=== PATIENT | female | born 1945 | race Caucasian/White ===

== ENCOUNTER 2020-06-01 16:00 | Inpatient (IN) | payer MEDICARE ==
[~2020-06-01] VITALS: Ht 165.1 cm; Wt 52.6 kg
[2020-06-01] MEDS ORDERED: DONE10TA44 PO (16:26)
[2020-06-01] MEDS ORDERED: TRAM50TA2 PO (16:26)
[2020-06-01] MEDS ORDERED: LIDOCAINE PATCH TP (16:26)
[2020-06-01] MEDS ORDERED: RIVA10TA PO (16:26)
[2020-06-01] MEDS ORDERED: BUSP5TAB3 PO (16:26)
[2020-06-01] MEDS ORDERED: TRET20CR35 TP (16:26)
[2020-06-01] MEDS ORDERED: ESCI5TAB PO (16:26)
[2020-06-01 16:48] LABS: BASOPHILS % (AUTO) 0.6 % (0.0-2.0); EOSINOPHILS % (AUTO) 0.9 % (0.0-7.0); HEMATOCRIT 35.4 % (31.2-41.9); HEMOGLOBIN 11.6 g/dL (10.9-14.3); LYMPHOCYTES # (AUTO) 1.6 K/uL (20.0-40.0); LYMPHOCYTES % (AUTO) 30.6 % (20.5-51.5); MEAN CORPUSCULAR HEMOGLOBIN 31.1 uug (24.7-32.8); MEAN CORPUSCULAR HGB CONC 33 g/dL (32.3-35.6); MEAN CORPUSCULAR VOLUME 95.3 fL (75.5-95.3); MONOCYTES # (AUTO) 0.6 K/uL (2.0-10.0); MONOCYTES % (AUTO) 11.4 % (0.0-11.0); NEUTROPHILS # (AUTO) 2.9 K/uL (1.8-8.9); NEUTROPHILS % (AUTO) 56.5 % (38.5-71.5); PLATELET COUNT (AUTO) 142 K/uL (179-408); RED BLOOD CELL COUNT(AUTO) 3.71 MIL/uL (3.63-4.92); WHITE BLOOD COUNT (AUTO) 5.1 K/uL (3.8-11.8)
[2020-06-01 16:53] LABS: CARBON DIOXIDE 28 mmol/L (21-32); CHLORIDE 106 mmol/L (98-107); CREATININE 0.8 mg/dL (0.6-1.3); GLUCOSE 85 mg/dL (74-106); POTASSIUM 4.2 mmol/L (3.5-5.1); UREA NITROGEN, BLOOD 17 mg/dL (7-18)
[2020-06-01 16:59] LABS: ACETAMINOPHEN < 2.0 ug/mL (10-30); ALANINE AMINOTRANSFERASE 32 U/L (14-59); ALKALINE PHOSPHATASE 91 U/L (50-136); ASPARTATE AMINOTRANSFERASE 17 U/L (15-37); BILIRUBIN,DIRECT 0.1 mg/dL (0.0-0.2); BILIRUBIN,TOTAL 0.3 mg/dL (0.2-1.0); TOTAL PROTEIN, SERUM 6.6 g/dL (6.4-8.2)
--- NOTE | 2020-06-01 17:11 | NUR ---
Patient is here with her mother in law. She is awake and alert and is cooperative. 12 lead EKG done, labs drawn, covid swab done and patient just completed the CT scan. She ate a sandwich and had a juice
--- NOTE | 2020-06-01 17:17 | NUR ---
I called [facility] psych eval, I left a message
[2020-06-01 17:23] LABS: ETHANOL < 3 MG/DL (0-0)
--- NOTE | 2020-06-01 17:47 | NUR ---
patient ambulated to bathroom with steady gait, urine sent to lab
[2020-06-01 18:08] LABS: *BILIRUBIN,URIN NEGATIVE (NEGATIVE); *BLOOD, URINE 2+ (NEGATIVE); *CLARITY,URINE CLOUDY (CLEAR); *COLOR,URINE YELLOW (YELLOW); *KETONES,URINE TRACE (NEGATIVE); *UROBILINOGEN,URINE 0.2 E.U./dl (NORMAL); LEUKOCYTE ESTERASE ,URINE 1+ (NEGATIVE); NITRITE, URINE POSITIVE (NEGATIVE); PH,URINE 5.5 (5.0-8.0); UGLUCOSE NEGATIVE (NEGATIVE)
[2020-06-01 18:17] LABS: *AMPHETAMINE, URINE NEGATIVE (NEGATIVE); *CANNABINOID, URINE NEGATIVE (NEGATIVE); *COCCAINE, URINE NEGATIVE (NEGATIVE); *OPIATE, URINE NEGATIVE (NEGATIVE); *PHENCYCLIDINE SCREEN,URINE NEGATIVE (NEGATIVE)
--- NOTE | 2020-06-01 18:27 | NUR ---
Thais from crisis team here speaking to patient and family
[2020-06-01 18:44] LABS: BACTERIA,URINE FEW /HPF (NONE SEEN); RBC,URINE 20-50 /HPF (0-3)
[2020-06-01] MEDS ORDERED: NITROFURANTOIN/NITROFURAN MAC 100 MG CAPSULE PO SCH (18:45)
[2020-06-01] MEDS: NITROFURANTOIN/NITROFURAN MAC 100 MG CAPSULE PO SCH ×2 (18:47→18:58)
--- NOTE | 2020-06-01 19:01 | NUR ---
Hand off report given to Alexandre PAGE.
--- NOTE | 2020-06-01 19:17 | NUR ---
Janine riprap worker completed 5150 Hold - DTS/GD for patient.
--- NOTE | 2020-06-01 19:48 | NUR ---
Report given to CAMILO Chavez.
--- NOTE | 2020-06-01 20:18 | NUR ---
Pt. admitted to [facility], under care of Dr. Lindo and Dr. Mora. Belongs List completed, transported with all original paperwork.
[2020-06-01] MEDS ORDERED: LORAZEPAM 0.5 MG TABLET PO PRN (20:45)
[2020-06-01] MEDS ORDERED: ACETAMINOPHEN 325 MG TABLET PO PRN (20:45)
[2020-06-01] MEDS ORDERED: MAG HYDROX/AL HYDROX/SIMETH 30 ML LIQUID UDC PO PRN (20:45)
[2020-06-01] MEDS ORDERED: MAGNESIUM HYDROXIDE 30 ML LIQUID UDC PO PRN (20:45)
[2020-06-01 21:01] VITALS: BP 122/60
[2020-06-01] MEDS: TEMAZEPAM 7.5 MG CAPSULE PO PRN (21:11)
--- NOTE | 2020-06-01 22:15 | NUR ---
GPS: Admitted to unit earlier a 75 yr.old female under the care and supervision of Dr. Lindo/ Dr. Carmen. Pt.is on a 72 hour hold for GD. Pt.is AOx3. Anxious,depressed but denies SI/wanting to hurt self. Contracts for safety while in the hosp. Personal belongings completed. Pt's rights handbook given as well as advisement. Unit rules explained. Safe environment provided. Re-assured prn. Will continue to monitor.
[2020-06-01] MEDS ORDERED: TRAMADOL HCL 50 MG TABLET PO PRN (23:00)
[2020-06-02] MEDS: CEphaleXIN 500 MG CAPSULE PO SCH ×3 (06:09→22:01)
[2020-06-02] MEDS ORDERED: LEVOTHYROXINE SODIUM 25 MCG TABLET PO SCH (07:00)
[2020-06-02 07:30] VITALS: BP 102/48
--- NOTE | 2020-06-02 07:30 | NUR ---
Received report from KIARA Sanchez. All questions, comments, and concerns were addressed. Received patient resting quietly in her assigned bed, bed is in low and locked position.
--- NOTE | 2020-06-02 08:37 | NUR ---
Firearms Report: Actuarial Clerk completed and submitted a [employer] firearms report for 5150 grave disability certification. A copy of report has been placed in patient chart.
[2020-06-02] MEDS: RIVAROXABAN 10 MG TABLET PO SCH (08:46)
[2020-06-02] MEDS ORDERED: INFLUENZA VACCINE 2020-2021 0.5 ML DISP.SYRIN IM ONE (09:00)
[2020-06-02] MEDS ORDERED: PNEUMOCOCCAL 23-VAL P-SAC VAC 0.5 ML VIAL IM ONE (09:00)
--- NOTE | 2020-06-02 09:44 | NUR ---
Initial Discharge Plan: Patient currently lives at home [address], [place], [place] [address]; ([phone]) and lives with Victor Hugo ([phone]). Patient would want to return back home upon discharge. This SW contacted patient's Victor Hugo ([phone]) to discuss treatment and discharge plan, however, was unavailable. This SW will work with patient, MD, and treatment team to help coordinate proper discharge.
--- NOTE | 2020-06-02 09:45 | NUR ---
SW Family Contact: This SW contacted patient's Victor Hugo ([phone]) to discuss treatment and discharge plan, however, was unavailable.
--- NOTE | 2020-06-02 10:40 | NUR ---
patient is alert and oriented. she is guarded, withdrawn, and isolative to her assigned room, but is cooperative and redirectable. patient is adherent with medication, no adverse reaction noted. patient denies SI/HI, denies AH/VH. patient states that she does not belong on this unit because she is "not that sick" and is minimizing reason for admission. patient is able to tolerate food and fluids. able to ambulate independently and perform self care and ADL's. patient is encouraged to participate in the unit therapeutic milieu and groups. educated about impulse control.
[2020-06-02] MEDS: DULOXETINE 30 MG CAPSULE.DR PO SCH (13:26)
--- NOTE | 2020-06-02 13:59 | NUR ---
Individual Therapy: home mission worker met with patient for brief counseling and discussed patient's presenting problem depression. Patient appeared withdrawn and depressed. She expressed to this SW that she has been feeling "hopeless" at home and has been in bed majority of the time. Patient expressed that the medications she was taking at home was not helpful. This SW encouraged patient to participate in group and interact with peers.
--- NOTE | 2020-06-02 14:30 | NUR ---
SW Family Contact: This SW contacted patient's Victor Hugo ([phone]) to gather collateral and discuss treatment plan. He reported patient has been depressed and home and needs help. Victor Hugo would want patient back home upon discharge.
[2020-06-02 16:28] VITALS: BP 106/49
--- NOTE | 2020-06-02 18:43 | NUR ---
Influenza and Pneumococcal-23 vaccines administered per order. No adverse reaction noted. Patient provided with VIS and education about vaccines, able to verbalize understanding.
[2020-06-02 20:27] VITALS: BP 127/64
[2020-06-02] MEDS: MIRTAZAPINE 15 MG TABLET PO SCH (21:13)
[2020-06-02] MEDS: NYSTATIN CREAM 30 GM TUBE TOP SCH (21:14)
[2020-06-03] MEDS: LEVOTHYROXINE SODIUM 50 MCG TABLET PO SCH (06:07)
[2020-06-03] MEDS: CEphaleXIN 500 MG CAPSULE PO SCH ×3 (06:07→21:21)
[2020-06-03 07:30] VITALS: BP 154/67
[2020-06-03] MEDS: RIVAROXABAN 10 MG TABLET PO SCH (08:52)
[2020-06-03] MEDS: NYSTATIN CREAM 30 GM TUBE TOP SCH ×2 (08:53→20:30)
[2020-06-03] MEDS: DULOXETINE 30 MG CAPSULE.DR PO SCH (13:58)
--- NOTE | 2020-06-03 15:16 | NUR ---
SW Family Contact: This SW received a phone call from patient's Victor Hugo ([phone]) and he wanted an update on how patient has been doing. This SW expressed that patient continues to be depressed.
--- NOTE | 2020-06-03 15:21 | NUR ---
URIEL Family Contact: This URIEL spoke with patient's Renan ([phone]) and discussed discharge planning. Renan stated that he has made a decision with patient and wants her to go to the [facility]. She stated if this SW can contact her daughter Carmen ([phone]) and discuss the discharge plan. Addendum: 06/03/20 at 1525 by URIEL MISTRY Wrong patient.
--- NOTE | 2020-06-03 15:25 | NUR ---
URIEL Family Contact: This SW contacted patient's daughter Carmen ([phone]) and was unable to leave a voicemail due to mailbox being full. Addendum: 06/03/20 at 1526 by URIEL MISTRY Wrong patient
[2020-06-03 16:00] VITALS: BP 131/94
[2020-06-03 20:28] VITALS: BP 146/77
[2020-06-03] MEDS: MIRTAZAPINE 15 MG TABLET PO SCH (20:30)
[2020-06-04] MEDS: CEphaleXIN 500 MG CAPSULE PO SCH ×3 (06:07→21:16)
[2020-06-04] MEDS: LEVOTHYROXINE SODIUM 50 MCG TABLET PO SCH (06:07)
[2020-06-04 07:30] VITALS: BP 144/63
[2020-06-04] MEDS: RIVAROXABAN 10 MG TABLET PO SCH (08:57)
[2020-06-04] MEDS: NYSTATIN CREAM 30 GM TUBE TOP SCH ×2 (09:13→20:54)
--- NOTE | 2020-06-04 13:08 | NUR ---
Individual Therapy: kennel worker met with patient for brief counseling and discussed patient's presenting problem depression. Patient appeared depressed. Patient continues to state that she feels "hopeless" and unable to state why. Patient minimizes her mental illness and states that "it is scary to be here". SW actively listened and educated patient on her mental illness.
--- NOTE | 2020-06-04 13:08 | NUR ---
SW Family Contact: This SW spoke with patient's Victor Hugo ([phone]) and he wanted to know how pt has been doing. This SW shared patient's treatment plan.
[2020-06-04] MEDS: DULOXETINE 30 MG CAPSULE.DR PO SCH (13:42)
--- NOTE | 2020-06-04 15:43 | NUR ---
SW Family Contact: This SW spoke with patient's daughter Marily ([phone]) who stated that she feels guilty that her mother is at a psychiatric hospital. She stated her mother is constantly contacting and stating that "she doesn't belong here". This SW explained to daughter that patient is depressed and withdrawn and has been minimizing her symptoms. Daughter was understanding and would want to speak to doctor Belgica. This SW notified to contact doctor Belgica. Addendum: 06/04/20 at 1556 by URIEL MISTRY SW Family Contact: This SW spoke with patient's daughter Marily ([phone]) who stated that she feels guilty that her mother is at a psychiatric hospital. She stated her mother is constantly contacting and stating that "she doesn't belong here". This SW explained to daughter that patient is depressed and withdrawn and has been minimizing her symptoms. Daughter was understanding and would want to speak to doctor Belgica. This SW notified doctor Belgica to contact daughter.
[2020-06-04 16:42] VITALS: BP 128/63
[2020-06-04 20:08] VITALS: BP 122/59
[2020-06-04] MEDS: MIRTAZAPINE 15 MG TABLET PO SCH (20:47)
[2020-06-05] MEDS: CEphaleXIN 500 MG CAPSULE PO SCH ×3 (06:04→20:51)
[2020-06-05] MEDS: LEVOTHYROXINE SODIUM 50 MCG TABLET PO SCH (06:04)
--- NOTE | 2020-06-05 06:32 | NUR ---
PATIENT ALERT ORIENTED, COMPLAIN OF BACK PAIN, AND INSOMNIA, MEDICATED ORDERED. PATIENT SLEPT FOR 5.45 HRS, PATIENT STAYED IN HER ROOM MOST OF THE NIGHT. Addendum: 06/05/20 at 0635 by MAXIMINO HAMPTON RN PATIENT ALERT ORIENTED, COMPLAIN OF BACK PAIN, AND INSOMNIA, MEDICATED ORDERED. PATIENT SLEPT FOR 5.45 HRS, PATIENT STAYED IN HER ROOM MOST OF THE NIGHT. CHARTING IN ERROR.
--- NOTE | 2020-06-05 06:35 | NUR ---
PATIENT ALERT NO COMPLAIN OF PAIN, CONT ON ABX WITH NO ADVERSE REACTION NOTED. PATIENT STAYED IN HER ROOM MOST OF THE NIGHT, PATIENT COOPERATIVE WITH CARE AND MEDICATION, CONT TO MONITOR.
[2020-06-05 07:30] VITALS: BP 120/42
[2020-06-05] MEDS: RIVAROXABAN 10 MG TABLET PO SCH (08:41)
[2020-06-05] MEDS: NYSTATIN CREAM 30 GM TUBE TOP SCH ×2 (08:45→20:52)
[2020-06-05] MEDS: ENSURE ENLIVE (VAN) 240 ML LIQUID PO SCH (09:00)
[2020-06-05] MEDS: DULOXETINE 30 MG CAPSULE.DR PO SCH (12:34)
--- NOTE | 2020-06-05 12:46 | NUR ---
Gps/Wrist Closer- Stayed in the dinning room during his lunch ,interacting with her selected peers. , compliant with her routine meds., continue to verbalized feelings and needs, claimed feeling anxious , calmer when talking to staff
[2020-06-05 16:00] VITALS: BP 112/52
[2020-06-05] MEDS: MIRTAZAPINE 15 MG TABLET PO SCH (20:52)
[2020-06-05] MEDS: TEMAZEPAM 7.5 MG CAPSULE PO PRN (21:14)
[2020-06-06] MEDS: CEphaleXIN 500 MG CAPSULE PO SCH ×3 (05:43→21:07)
[2020-06-06] MEDS: LEVOTHYROXINE SODIUM 50 MCG TABLET PO SCH (06:01)
--- NOTE | 2020-06-06 06:49 | NUR ---
PT SLEPT 5.30 H.PT IN NO ACUTE DISTRESS. PT VITAL SIGNS STABLE. PRESCRIBED MEDICATION GIVEN AND PT TOLERATED IT WELL. PT GIVEN RESTORIL PRN AT 2114H PER PT REQUEST. PT COOPERATIVE WITH CARE. SAFETY AND COMFORT PROVIDED. ALL NEEDS ARE MET. WILL ENDORSE TO INCOMING NURSE FOR CONTINUITY OF CARE.
[2020-06-06 07:30] VITALS: BP 109/55
[2020-06-06] MEDS: RIVAROXABAN 10 MG TABLET PO SCH (10:19)
[2020-06-06] MEDS: NYSTATIN CREAM 30 GM TUBE TOP SCH ×2 (10:20→20:29)
[2020-06-06] MEDS: ENSURE ENLIVE (VAN) 240 ML LIQUID PO SCH (10:21)
[2020-06-06] MEDS: DULOXETINE 30 MG CAPSULE.DR PO SCH (13:01)
[2020-06-06 16:00] VITALS: BP 149/67
[2020-06-06 20:05] VITALS: BP 124/51
[2020-06-06] MEDS: MIRTAZAPINE 15 MG TABLET PO SCH (20:24)
[2020-06-07] MEDS: LEVOTHYROXINE SODIUM 50 MCG TABLET PO SCH (06:20)
[2020-06-07] MEDS: CEphaleXIN 500 MG CAPSULE PO SCH ×3 (06:20→22:44)
--- NOTE | 2020-06-07 07:11 | NUR ---
PATIENT ALERT STAYED ON HER ROOM MOST OF THE NIGHT, NO COMPLAIN OF PAIN, NO BEHAVIORAL PROBLEM NOTED, ENCOURAGED TO DRINK WATER SINCE SHE ON ABX FOR UTI, CONT TO MONITOR. PATIENT SLEPT FOR 7 HRS.
[2020-06-07 07:30] VITALS: BP 146/68
[2020-06-07] MEDS: RIVAROXABAN 10 MG TABLET PO SCH (08:59)
[2020-06-07] MEDS: ENSURE ENLIVE (VAN) 240 ML LIQUID PO SCH (09:00)
[2020-06-07] MEDS: NYSTATIN CREAM 30 GM TUBE TOP SCH (09:00)
[2020-06-07] MEDS: DULOXETINE 30 MG CAPSULE.DR PO SCH (12:07)
--- NOTE | 2020-06-07 12:37 | NUR ---
SNF Referral: This SW contacted Janine greco from [facility] ([phone]) for possible placement. This SW sent H & P notes, medication list, and laboratory list.
--- NOTE | 2020-06-07 12:39 | NUR ---
SNF Contact: This SW received a call from Janine greco from [facility] ([phone]) who stated patient is accepted.
--- NOTE | 2020-06-07 12:39 | NUR ---
SW Family Contact: This SW spoke with patient's Victor Hugo ([phone]) and stated patient is accepted at [facility] and he was agreeable with this plan.
--- NOTE | 2020-06-07 13:25 | NUR ---
SW Family Contact: This SW spoke with patient's daughter Dustin ([phone]) and stated pt is accepted at [facility] and she was agreeable with this.
--- NOTE | 2020-06-07 15:44 | NUR ---
Individual Therapy: boil off worker met with patient for brief counseling and discussed patient's presenting problem depression. Patient appeared to be less depressed and was smiling with this SW. 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 Patient presented with a brighter affect. SW actively listened and provided support.
[2020-06-07 15:56] VITALS: BP 142/77
[2020-06-07 19:35] VITALS: BP 107/57
[2020-06-07] MEDS: MIRTAZAPINE 15 MG TABLET PO SCH (20:46)
[2020-06-08] MEDS: CEphaleXIN 500 MG CAPSULE PO SCH (06:03)
[2020-06-08] MEDS: LEVOTHYROXINE SODIUM 50 MCG TABLET PO SCH (06:04)
--- NOTE | 2020-06-08 06:12 | NUR ---
Shift End Report: Slept 6.30 hours. Very nice, compliant on her medication. Continue on antibiotic for UTI. No s/s of adverse reaction from Keflex. Continue care as planned.
[2020-06-08 07:30] VITALS: BP 102/46
--- NOTE | 2020-06-08 07:30 | NUR ---
Received patient siting on the side of the bed. patient is calm, cooperative and pleasant. She report feeling tired. No sign of distress noted,. No SI or LORD reported. Safety measures are in place. Will continue to monitor.
[2020-06-08] MEDS: RIVAROXABAN 10 MG TABLET PO SCH (09:08)
[2020-06-08] MEDS: ENSURE ENLIVE (VAN) 240 ML LIQUID PO SCH (09:09)
[2020-06-08] MEDS: DULOXETINE 30 MG CAPSULE.DR PO SCH (12:42)
[2020-06-08 15:28] VITALS: BP 143/89
[2020-06-08] MEDS: LOPERAMIDE HCL 2 MG CAPSULE PO PRN ×2 (16:20→20:34)
--- NOTE | 2020-06-08 18:24 | NUR ---
Patient compliant with medications. Had an episode of diarrhea today and Imodium was administered. denies SI/LORD. patient calm and cooperative. safety in place. Will endorse to oncoming nurse.
[2020-06-08 20:10] VITALS: BP 109/58
[2020-06-08] MEDS: MIRTAZAPINE 15 MG TABLET PO SCH (20:34)
--- NOTE | 2020-06-09 01:55 | NUR ---
RECEIVED PATIENT IN THE ACTIVITY ROOM WITH PEERS. DENIED SI/HI BUT NOTED SHE WAS THE LAST TO SEE SHE WAS DEPRESSED. SHE IS MEDICATION COMPLIANT AND LIBERAL FLUIDS ENCOURAGED.VISUAL CHECKS MADE ON HER FOR SAFETY. WILL CONTINUE TO MONITOR.
--- NOTE | 2020-06-09 05:49 | NUR ---
GPS: Pt.slept for 8 hrs.last night. No further loose stools reported. Safe environment provided. Needs attended.
[2020-06-09] MEDS: LEVOTHYROXINE SODIUM 50 MCG TABLET PO SCH (06:12)
[2020-06-09 07:30] VITALS: BP 106/39
[2020-06-09] MEDS: ENSURE ENLIVE (VAN) 240 ML LIQUID PO SCH (08:36)
[2020-06-09] MEDS: LOPERAMIDE HCL 2 MG CAPSULE PO PRN (08:41)
[2020-06-09] MEDS: RIVAROXABAN 10 MG TABLET PO SCH (08:43)
[2020-06-09] MEDS: DULOXETINE 30 MG CAPSULE.DR PO SCH (12:09)
[2020-06-09 16:00] VITALS: BP 132/53
--- NOTE | 2020-06-09 16:05 | NUR ---
patient is alert and oriented but is forgetful and confused. she is superficially bright and cooperative with staff. patient needs redirection and reality orientation regarding discharge planning process and current situation. patient is adherent with medication, no adverse reaction noted. patient is able to ambulate and perform self care and ADL's independently. patient encouraged to participate in the unit therapeutic milieu and groups.
[2020-06-09] MEDS: MIRTAZAPINE 15 MG TABLET PO SCH (20:33)
[2020-06-09 20:34] VITALS: BP 122/59
[2020-06-10] MEDS: LEVOTHYROXINE SODIUM 50 MCG TABLET PO SCH (06:26)
[2020-06-10 07:30] VITALS: BP 145/48
[2020-06-10] MEDS: RIVAROXABAN 10 MG TABLET PO SCH (08:10)
[2020-06-10] MEDS: ENSURE ENLIVE (VAN) 240 ML LIQUID PO SCH (08:13)
--- NOTE | 2020-06-10 11:00 | NUR ---
PATIENT SEEN BY DR SYED VIA FACE TIME AND DR SYED IS PLANNING TO DISCHARGE PATIENT TOMORROW PATIENT AWARE AND IS EXITED TO BE LEAVING TOMORROW.
--- NOTE | 2020-06-10 11:49 | NUR ---
received a call from patients Daughter Marcel) [phone], wanted to speak with neurologist and psychiatrist, MDs made aware
[2020-06-10] MEDS: DULOXETINE 30 MG CAPSULE.DR PO SCH (12:47)
--- NOTE | 2020-06-10 13:20 | NUR ---
URIEL PC Hearing: Patient had 5250 probable cause hearing today and it was upheld for grave disability.
--- NOTE | 2020-06-10 14:28 | NUR ---
SW Note: This SW spoke with patient and she agrees to go to the nursing facility.
--- NOTE | 2020-06-10 14:28 | NUR ---
SW Family Contact: This SW contacted patients Victor Hugo ([phone]) and daughter Elzbieta ([phone]) and they both are aware of patient's discharge. Both are agreeing with patient going to [facility].
--- NOTE | 2020-06-10 15:07 | NUR ---
Individual Therapy: still worker helper met with patient for brief counseling and discussed patient's presenting problem disorganized thought content. Patient presented with brighter affect. Patient stated that she is "excited about her treatment at the facility". She expressed that she is ready to take care of her mental mind and feels that she has been improving. This SW actively listened and provided emotional support.
[2020-06-10 16:32] VITALS: BP 127/52
--- NOTE | 2020-06-10 18:00 | NUR ---
ALERT COOPERATIVE AND COMPLIANT D/D PLANNING FOR TOMORROW WILL CONTINUE TO PROVIDE SAFE AND THERAPEUTIC ENVIRONMENT AT ALL TIMES.
[2020-06-10 20:12] VITALS: BP 119/51
[2020-06-10] MEDS: MIRTAZAPINE 15 MG TABLET PO SCH (20:47)
[2020-06-10] MEDS: TEMAZEPAM 7.5 MG CAPSULE PO PRN (23:44)
[2020-06-11] MEDS: LEVOTHYROXINE SODIUM 50 MCG TABLET PO SCH (06:05)
[2020-06-11 07:30] VITALS: BP 126/60
--- NOTE | 2020-06-11 07:58 | NUR ---
Discharge Note: Patient will be discharged to [facility] [address] [place] [address] ([phone]) via ambulance at 1PM. Spoke with Donna, Admin Coordinator at the facility who states they are ready to accept the patient today. Patients Victor Hugo ([phone]) and daughter Elzbieta ([phone]) is aware and agreeable with discharge plan. Patient is aware and agreeable with discharge plans. Patient is alert and oriented x3, is unable to plan for self-care, however, is willing to accept care at [facility]. Patient denies any suicidal or homicidal ideation. Patient will follow-up at the facility with Dr. Lindo (Psychiatrist) and Dr. Ann (Bag Filler). Patient presents with euthymic mood and congruent affect.
[2020-06-11] MEDS: ENSURE ENLIVE (VAN) 240 ML LIQUID PO SCH (09:00)
[2020-06-11] MEDS: RIVAROXABAN 10 MG TABLET PO SCH (09:14)
--- NOTE | 2020-06-11 12:02 | NUR ---
Gps/liner roll changer-Reviewed discharge instructions , patient verbalized understanding. Patient was well informed of her discharged to [facility]. per patient was able to talked to her , was informed of her dischargee .per patient looking forward to her new place, and claimed she is hoping everything works out for her. Claimed she's feeling better , still had issues that she needs to deal with per pt. at home.
[2020-06-11] MEDS: DULOXETINE 30 MG CAPSULE.DR PO SCH (12:42)
--- NOTE | 2020-06-11 13:37 | NUR ---
Gps/Microfiche Camera Operator- Called [facility], report was given to Deonte Mehta patient assigned to room #60 . Informed of picked edge sewing machine operator time 1400 via ambulance, patient was informed. All belongings was given back to patient. In good spirit, no new complaints noted.
--- NOTE | 2020-06-11 14:30 | NUR ---
Gps/Wind Technician- Patient discharged to [facility] via ambulance all valuables/belongings (cell phone with complaint coordinator, passport, ID cards, credit cards, clothes ,meds.from home) given back to patient. discharged in good spirit, no complaints noted.
--- NOTE | 2020-06-14 14:43 | NUR ---
SW Family Contact: This SW attempted to contact patient's Victor Hugo ([phone]) for patient's belongings, however, he did not answer and this SW was unable to leave a voicemail. This SW contacted patient's daughter Dustin ([phone]) and notified that patient's belongings are here and she stated she will contact her step father Victor Hugo to coordinate this.
--- NOTE | 2020-06-15 11:25 | NUR ---
SW Family Contact: This SW attempted to contact patient's Victor Hugo ([phone]) who stated he will crop picker patient's belongings today 06/15. This SW advised charge nurse Didi gant.
== END 2020-06-11 14:30 | DRG 885 ==
LOC: ER 16:03 → GPS 20:06
PROVIDERS: ADMIT Psychiatry & Neurology Psychosomatic Medicine; ATTEND Psychiatry & Neurology Psychosomatic Medicine
DX: F33.2 Major depressive disorder, recurrent severe without psychotic features (principal); N39.0 Urinary tract infection, site not specified; Z86.711 Personal history of pulmonary embolism; Z79.01 Long term (current) use of anticoagulants; E03.9 Hypothyroidism, unspecified; G89.29 Other chronic pain; Z20.822 Contact with and (suspected) exposure to COVID-19; Z90.710 Acquired absence of both cervix and uterus; Z91.81 History of falling; M19.90 Unspecified osteoarthritis, unspecified site; B35.3 Tinea pedis
CPT/HCPCS: 36415; 70450; 71045; 84443; 85025; 87086; 90686; 90732; 93005; A4663; G0480